=== PATIENT | male | born 1955 | race Caucasian/White ===

== ENCOUNTER 2018-08-27 09:06 | Day surgery (SDC) | payer MEDICARE, BC ==
[~2018-08-27] VITALS: Ht 177.8 cm; Wt 87.5 kg
[2018-08-27] VITALS (10 sets, daily range): BP systolic 144–155; BP diastolic 77–91
[~2018-08-27 09:06] MED LIST: Acetaminophen 500mg (ES) tab ORAL ONE; ceFAZolin sod 1 GM in NS 55 ML IVPB ONE; celeBREX 200mg Cap **SURGERY PATIENTS ONLY ORAL ONE; oxyCONTIN 20mg tab ORAL ONE
--- NOTE | 2018-08-27 09:33 | Pre-Procedure Note/Attestation ---
Pre-Procedure Note/Attestation Complete Prior to Procedure Planned Procedure: left Procedure Narrative: left patellar ORIF Indications for Procedure Pre-Operative Diagnosis: left patellar fx Attestation I attest that I discussed the nature of the procedure; its benefits; risks and complications; and alternatives (and the risks and benefits of such alternatives ), prior to the procedure, with the patient (or the patient's legal senior patient account representative). I attest that, if there was a reasonable possibility of needing a blood transfusion, the patient (or the patient's legal senior patient account representative) was given the [facility] standardized written summary, pursuant to the Misael Gage Blood Safety Act ([place] Health and Safety Code # 1645, as amended). I attest that I re-evaluated the patient just prior to the surgery and that there has been no change in the patient's H&P, except as documented below: NONE Jonas García MD Aug 27, 2018 09:33
[2018-08-27] MEDS ORDERED: BIKTARVY 50-201 EACH PO (10:44)
[2018-08-27 11:06] LABS: BASOPHILS % (AUTO) 0.6 % (0.0-2.0); EOSINOPHILS % (AUTO) 0.5 % (0.0-3.0); HEMOGLOBIN 13.5 G/DL (14.2-18.0); LYMPHOCYTES % (AUTO) 18.1 % (20.0-45.0); MEAN CORPUSCULAR VOLUME 91 FL (80-99); NEUTROPHILS % (AUTO) 73.8 % (45.0-75.0); PLATELET COUNT 216 K/UL (150-450); RED BLOOD COUNT 4.39 M/UL (4.70-6.10); RED CELL DISTRIBUTION WIDTH 11.5 % (11.6-14.8); WHITE BLOOD COUNT 6.8 K/UL (4.8-10.8)
[2018-08-27 11:16] LABS: INR 0.9 (0.9-1.1)
[2018-08-27 11:19] LABS: ANION GAP 6 mmol/L (5-15); BLOOD UREA NITROGEN 28 mg/dL (7-18); CARBON DIOXIDE 28 MMOL/L (21-32); CHLORIDE 107 MMOL/L (98-107); POTASSIUM 4.3 MMOL/L (3.5-5.1); SODIUM 141 MMOL/L (136-145)
[2018-08-27] MEDS ORDERED: celeBREX 200mg Cap **SURGERY PATIENTS ONLY ORAL ONE (11:29)
[2018-08-27] MEDS ORDERED: Acetaminophen 500mg (ES) tab ORAL ONE (11:29)
[2018-08-27] MEDS ORDERED: oxyCONTIN 20mg tab ORAL ONE (11:29)
[2018-08-27] MEDS ORDERED: Lidocaine 1% MPF 10mg/ml 5ml ONE (12:56)
[2018-08-27] MEDS ORDERED: Propofol 200mg/20ml IV ONE (12:56)
[2018-08-27] MEDS ORDERED: Ropivacaine 5mg/ml Vial 30ml INJ ONE (13:00)
[2018-08-27] MEDS ORDERED: fentaNYL 100 mcg/2 mL IV ONE (13:05)
[2018-08-27] MEDS ORDERED: Midazolam 2mg/2ml Inj ONE (13:05)
[2018-08-27] MEDS ORDERED: Bacitracin 50000 Units Vial ONE ×2 (13:21→13:46)
[2018-08-27] MEDS ORDERED: Bupivacaine 0.25% Inj 30ml INJ ONE (13:46)
[2018-08-27] MEDS ORDERED: NeoSporin Gu Irrig 1ml Amp IRRIG ONE ×3 (13:46→14:36)
[2018-08-27] MEDS ORDERED: LR 1000ml ONE (14:00)
[2018-08-27] MEDS ORDERED: Sterile Water Irrig 1000ml IRRIG ONE (14:00)
[2018-08-27] MEDS ORDERED: NS Irrig 2000ml IRRIG ONE ×2 (14:12→14:37)
[2018-08-27] MEDS ORDERED: LR 1000ml 1,000 ML IVLG SCH (14:42)
--- NOTE | 2018-08-27 14:42 | Anethesia Preoperative Eval ---
Anesthesia Pre-op PMH/ROS General Date of Evaluation: Aug 27, 2018 Time of Evaluation: 13:30 Anesthesiologist: Noni ASA Score: ASA 2 Mallampati Score Class I : Soft palate, uvula, fauces, pillars visible Class II: Soft palate, uvula, fauces visible Class III: Soft palate, base of uvula visible Class IV: Only hard plate visible Mallampati Classification: Class II Surgeon: Ricky Diagnosis: L patellar Fx Surgical Procedure: ORIF of L patellar Fx Anesthesia History: none Family History: no anesthesia problems Allergies: Coded Allergies: PENICILLINS (Verified Allergy, Unknown, unknown, 08/27/18) "patient was told when he was a child" Medications: see eMAR Patient NPO?: Yes Past Medical History Cardiovascular: Denies: HTN, CAD, MD, valve dz, arrhythmia, other Pulmonary: Denies: asthma, COPD, RADHA, other Gastrointestinal/Genitourinary: Reports: GERD; Denies: CRI, ESRD, other Neurologic/Psychiatric: Denies: dementia, CVA, depression/anxiety, TIA, other Endocrine: Denies: DM, hypothyroidism, steroids, other HEENT: Denies: cataract (L), cataract (R), glaucoma, NOATAK (L), NOATAK (R), other Hematology/Immune: Reports: other - HIV + 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 Exam Physician Exam Last Vital Signs Date Time Temp Pulse Resp B/P (MAP) Pulse Ox O2 Delivery O2 Flow Rate FiO2 08/27/18 10:05 Room Air 08/27/18 09:58 98.3 75 18 155/91 100 Constitutional: NAD Neurologic: CN 2-12 intact Cardiovascular: RRR, no M/R/G Respiratory: CTA Gastrointestinal: S/NT/ND Airway Exam Mallampati Score: Class II MO: full ROM: full Teeth: intact Dentures: no upper, no lower Anesthesia Pre-op A/P Labs Hematology Test 08/27/18 10:30 White Blood Count 6.8 K/UL (4.8-10.8) Red Blood Count 4.39 M/UL (4.70-6.10) L Hemoglobin 13.5 G/DL (14.2-18.0) L Hematocrit 40.0 % (42.0-52.0) L Mean Corpuscular Volume 91 FL (80-99) Mean Corpuscular Hemoglobin 30.7 PG (27.0-31.0) Mean Corpuscular Hemoglobin Concent 33.7 G/DL (32.0-36.0) Red Cell Distribution Width 11.5 % (11.6-14.8) L Platelet Count 216 K/UL (150-450) Mean Platelet Volume 6.7 FL (6.5-10.1) Neutrophils (%) (Auto) 73.8 % (45.0-75.0) Lymphocytes (%) (Auto) 18.1 % (20.0-45.0) L Monocytes (%) (Auto) 7.0 % (1.0-10.0) Eosinophils (%) (Auto) 0.5 % (0.0-3.0) Basophils (%) (Auto) 0.6 % (0.0-2.0) Coagulation Test 08/27/18 10:30 Prothrombin Time 9.9 SEC (9.30-11.50) Prothromb Time International Ratio 0.9 (0.9-1.1) Activated Partial Thromboplast Time 25 SEC (23-33) Chemistry Test 08/27/18 10:30 Sodium Level 141 MMOL/L (136-145) Potassium Level 4.3 MMOL/L (3.5-5.1) Chloride Level 107 MMOL/L (98-107) Carbon Dioxide Level 28 MMOL/L (21-32) Anion Gap 6 mmol/L (5-15) Blood Urea Nitrogen 28 mg/dL (7-18) H Creatinine 1.0 MG/DL (0.55-1.30) Estimat Glomerular Filtration Rate > 60 mL/min (>60) Glucose Level 112 MG/DL (74-106) H Calcium Level 9.0 MG/DL (8.5-10.1) Studies Pre-op Studies: EKG - SR Risk Assessment & Plan Assessment: ASA 2 Plan: GA with LMA L femoral nerve block for post op pain control Status Change Before Surgery: No Pre-Antibiotics Drug: Ancef 2gr Given Within 1 Hr of Incision: Yes Time Given: 14:28 Ramiro Cheney MD Aug 27, 2018 14:42
[2018-08-27] MEDS ORDERED: Ketorolac 30mg Inj ONE (14:44)
[2018-08-27] MEDS ORDERED: Hydromorphone 0.5mg/0.5ml inj IVP PRN (14:45)
[2018-08-27] MEDS ORDERED: DiphenhydrAMINE 50mg/ml Inj IVP PRN (14:45)
[2018-08-27] MEDS ORDERED: Ketorolac 30mg Inj IV PRN (14:45)
--- NOTE | 2018-08-27 15:50 | Brief Operative Note ---
Immediate Post Operative Note Operative Note Chief Complaint: left knee pain Pre-op Diagnosis: left patellar fx Procedure: left patellar orif Post-op Diagnosis: same as pre-op Findings: consistent w/pre-op dx studies Surgeon: md jean Hospitality Intern: dexter ace Anesthesiologist: md kim Anesthesia: general Specimen: none Complications: none Condition: stable Fluids: ns Estimated Blood Loss: minimal Drains: none Implant(s) used?: Yes - Eusebia Luis Aug 27, 2018 15:50
--- NOTE | 2018-08-27 16:05 | Immediate Post-Op Evaluation ---
Immediate Post-Op Evalulation Immediate Post-Op Evalulation Procedure: ORIF of L patellar Fx Date of Evaluation: Aug 27, 2018 Time of Evaluation: 16:04 IV Fluids: 1000 Blood Products: none Estimated Blood Loss: 50 Urinary Output: none Blood Pressure Systolic: 148 Blood Pressure Diastolic: 86 Pulse Rate: 62 Respiratory Rate: 20 O2 Sat by Pulse Oximetry: 98 Temperature (Fahrenheit): 98.4 Pain Score (1-10): 1 Nausea: No Vomiting: No Complications none Patient Status: reacts, patent, none Hydration Status: adequate Ramiro Cheney MD Aug 27, 2018 16:05
--- NOTE | 2018-08-27 16:52 | 48 Hour Post Anesthesia Eval ---
Post Anesthesia Evaluation Procedure: ORIF of L patellar Fx Date of Evaluation: Aug 27, 2018 Time of Evaluation: 16:51 Blood Pressure Systolic: 145 0: 62 Pulse Rate: 74 Respiratory Rate: 20 Temperature (Fahrenheit): 97.6 O2 Sat by Pulse Oximetry: 98 Airway: patent Nausea: No Vomiting: No Pain Intensity: 1 Hydration Status: adequate Cardiopulmonary Status: stable Mental Status/LOC: patient returned to baseline Follow-up Care/Observations: n/a Post-Anesthesia Complications: none Follow-up care needed: ready to discharge Ramiro Cheney MD Aug 27, 2018 16:52
--- NOTE | 2018-08-27 18:15 | Pre-op HX & Phy Repo 2 SIG ---
DATE OF ADMISSION: 08/27/2018 ATTENDING PHYSICIAN: Jonas García M.D. REASON FOR ADMISSION: Emergent left knee surgery. HISTORY OF PRESENT ILLNESS: The patient is a 63-year-old male with history of HIV, who has been stable from that point of view. The patient was in his usual state of health until a few days ago when he had a mechanical fall at home, which resulted in injury to his left knee. He has been evaluated by Dr. García, diagnosed with fracture of the patella on the left side. The patient was then admitted for emergent surgery of the left patella. The patient denies history of coronary artery disease, chest pain, and exercises regularly without any limitations. His cardiac risk factors are significant for hypercholesterolemia. REVIEW OF SYSTEMS: GENERAL: Denies weight loss, fever, chills, or night sweats. HEENT: Denies headache or sinus problem. PULMONARY: Denies cough or sputum production. CARDIOVASCULAR: Denies chest pain, palpitations, PND, orthopnea, or lower extremity edema. GASTROINTESTINAL: Denies dysphagia, dyspepsia, abdominal pain, nausea, vomiting, diarrhea, or constipation. GENITOURINARY: Denies dysuria or hematuria. MUSCULOSKELETAL: As noted above. PHYSICAL EXAMINATION: VITAL SIGNS: Blood pressure was 160/80, temperature afebrile, heart rate is 98, weight is 193, and BMI is 27.7. HEENT: Unremarkable. NECK: Supple. LUNGS: Without rales or wheezes. CARDIAC: S1 and S2 are normal without S3, S4. Jugular venous pressure is normal. ABDOMEN: Soft, nontender. Bowel sounds are present. EXTREMITIES: Without cyanosis or clubbing. The left knee is swollen and tender with ecchymosis extending to the thigh and the calf area with swelling of the calf area. DIAGNOSTIC DATA: EKG was reviewed and showed normal sinus rhythm. Nonspecific ST-T changes. IMPRESSION: 1. Status post fall with left knee injury and patella fracture. 2. Hypertension. 3. History of HIV, currently on medical therapy. PLAN: The patient has been started on metoprolol 25 mg daily in preparation for his surgery, which will be continued postoperatively. Laboratories will be checked in the hospital and the patient has been advised to obtain a duplex scan of the lower extremity to rule out DVT. The patient is otherwise cleared to proceed with surgery as planned and will be followed as necessary. Dr. García, thank you for allowing me to participate in the care of this patient and I will be happy to follow with you as necessary. Sundeep Escalante M.D. DR: NATI JOB#: [id number] CC: Sundeep Escalante M.D.; Fax#: [phone] CHART
--- NOTE | 2018-08-27 19:45 | Operative Note - Dictated ---
DATE OF OPERATION: 08/27/2018 PREOPERATIVE DIAGNOSIS: Left knee patellar comminuted fracture with significant displacement. POSTOPERATIVE DIAGNOSIS: Left knee patellar comminuted fracture with significant displacement. PROCEDURE: Left patellar comminuted fracture open reduction and internal fixation with two 4.0 cannulated screws with a double tension band wiring technique augmented with #2 FiberWire sutures placed through the proximal and distal fragment. SURGEON: Jonas García M.D. ADMITTING COORDINATOR: Eusebia Valencia PA-C. ANESTHESIOLOGIST: Ramiro Cheney M.D. ANESTHESIA: General LMA anesthesia combined with femoral block. ESTIMATED BLOOD LOSS: Less 100 mL. TOURNIQUET TIME: 75 minutes. COMPLICATIONS: None. BRIEF HISTORY: The patient is a pleasant 63-year-old gentleman who sustained a mechanical fall and had a comminuted left patellar fracture. He was evaluated in the office and after clearance for surgery, he opted for surgical treatment. Possibility of infection, bleeding, neurovascular complication, possibility of continued pain, possibility of displacement, possibility of malunion, possibility of nonunion, possibility of need for hardware removal, and loss of reduction requiring further surgery as well as loss of motion, and other complications that may arise were discussed with him. He understood and agreed. All questions were answered prior to surgery. OPERATIVE PROCEDURE: The patient was brought to the operating room and was placed on operative room table. All pressure points were well padded. General endotracheal anesthesia was induced and a femoral block was performed by the anesthesiologist. The left knee was prepped and draped in usual sterile fashion and was exsanguinated and tourniquet was inflated to 275 mmHg. A time-out was performed and preop antibiotics were given. A standard anterior incision was made over the patella. The incision was taken through the subcutaneous tissue. The fracture was identified. The proximal piece was proximally retracted by about 4 cm. At this point, the hematoma was evacuated. The knee was thoroughly irrigated using Simpulse irrigation. Using a curette, the ends of the bone were cleared. The main fracture fragments were 1 large fracture fragment distally and 1 large proximally. However, there was extensive comminution dorsally. Therefore, using combination of tenaculum clamps as well as other reduction clamp as well as using image intensifier, the fracture was reduced near anatomically considering all the comminution. The articular surface appeared to be well aligned. The wounds were thoroughly irrigated. At this point, two 42 mm partially-threaded cannulated screws were placed from distal to proximal direction. An 18-gauge wire was then passed through the cannulated screws and were tensioned in double fashion to provide excellent tension across the fracture site. Once this was completed, some of the dorsal comminution had reduced. However more laterally, there was dorsal combination that did not go underneath the tension band and was more lateral to the tension band. Therefore, a drill hole was used and a #2 FiberWire suture was placed through the drill hole and this was tied to provide some dorsal buttress of the dorsal fragment. This reduced the fragment very well anatomically. At this point, all wounds were thoroughly irrigated using copious amount of fluid. The knee was placed through range of motion. There was good range of motion of the knee. Final images were obtained and the hardware was in good placement and the fracture was reduced well. At this point, the medial and lateral retinaculum were completely torn and these were repaired using #1 FiberWire suture. Subcutaneous tissue was closed using 2-0 Vicryl suture. Skin was closed using 3-0 Monocryl suture. Sterile dressing was applied. The patient tolerated the procedure well without any complication, was taken recovery room in stable condition. The patient was placed in a knee immobilizer. He will continue the knee immobilizer for next 10 days. Jonas García M.D. DR: TAI JOB#: [id number] CC:
[2018-08-27] MEDS ORDERED: HYDROmorphone 1mg/ml Carpuject SUBQ PRN (21:01)
[2018-08-27] MEDS ORDERED: HYDROcodone/Acetamin 5/325 tab ORAL PRN (21:01)
[2018-08-27] MEDS ORDERED: Tylenol #3 tab (300mg/30mg) ORAL PRN (21:01)
[2018-08-27] MEDS ORDERED: D5 1/2NS 1,000 ML IV SCH (21:01)
--- NOTE | 2018-08-28 12:47 | Diagnostic Imaging Report ---
Indication: Intraoperative imaging left knee surgery Findings: Portable fluoroscopic views of the left knee obtained in 2 projections showing 2 vertically oriented screws and cerclage wires reducing a transverse fracture of the patella. The fracture itself is poorly visualized on the fluoroscopic images. Fluoroscopic time is 33 seconds. IMPRESSION: Intraoperative imaging
== END 2018-08-27 17:45 | disposition home or self-care (01) ==
LOC: SUR 09:06
DX: S82.042A Displaced comminuted fracture of left patella, initial encounter for closed fracture (principal); I10 Essential (primary) hypertension; B20 Human immunodeficiency virus [HIV] disease; W19.XXXA Unspecified fall, initial encounter; Y92.9 Unspecified place or not applicable; K21.9 Gastro-esophageal reflux disease without esophagitis; Z88.0 Allergy status to penicillin; E66.3 Overweight; Z68.27 Body mass index [BMI] 27.0-27.9, adult
CPT/HCPCS: 27524; 36415; 73560; 76000; 80048; 85025; 85610; 85730; 93970; C1713; J0690; J1885; J2250; J2704; J2795; J3010; 94003; 94150